=== PATIENT | male | born 1980 | race Caucasian/White ===

== ENCOUNTER 2019-10-21 21:59 | Emergency (ER) | payer MEDICARE, MEDICAID ==
[~2019-10-21] VITALS: Ht 147.3 cm; Wt 63.6 kg
[~2019-10-21 21:59] MED LIST: LORA1TAB PO; MAGN400O6 PO; METO25TA6 PO
--- NOTE | 2019-10-21 22:15 | NUR ---
APPARENTLY THERE WAS MISCOMMUNICATION WITH STAFF MEMBERS WHERE HE RESIDES AT, HE WAS NOT SUPPOSE TO BE TRANSFERRED UNLESS HIS BP WENT BELOW 110. BUT HE IS HERE AND DOING WELL.
--- NOTE | 2019-10-21 22:24 | NUR ---
Spoke with [facility] [employer] who is at bedside and she states that their facility's medical provider has been notified. Pt. was apparently suppose to remain in facility unless patient becomes hypotensive in response to meds given.
--- NOTE | 2019-10-21 22:33 | NUR ---
Per Dr. Patel, pt. VS to be monitored in the ED x 1-2 hour and pt. to be DC'd back to facility.
[2019-10-21 23:53] VITALS: BP 101/73
== END 2019-10-21 23:56 ==
LOC: ER 21:59
DX: T46.4X1A Poisoning by angiotensin-converting-enzyme inhibitors, accidental (unintentional), initial encounter (principal); T50.2X1A Poisoning by carbonic-anhydrase inhibitors, benzothiadiazides and other diuretics, accidental (unintentional), initial encounter; T43.591A Poisoning by other antipsychotics and neuroleptics, accidental (unintentional), initial encounter; I10 Essential (primary) hypertension; R62.50 Unspecified lack of expected normal physiological development in childhood; Z79.899 Other long term (current) drug therapy; Y92.89 Other specified places as the place of occurrence of the external cause
CPT/HCPCS: 99284

== ENCOUNTER 2023-04-12 11:47 | Emergency (ER) | payer MEDICARE, MEDICAID ==
[~2023-04-12] VITALS: Ht 162.6 cm; Wt 59.5 kg
[~2023-04-12 11:47] MED LIST changes: +LOP25T PO; -METO25TA6 PO
[2023-04-12 12:13] VITALS: BP 104/77
--- NOTE | 2023-04-12 14:54 | NUR ---
[employer] REPORT FILE. SEE PROVIDERS MSE NOTES.
== END 2023-04-12 15:17 | disposition home or self-care (01) ==
LOC: ER 11:47
DX: S30.21XA Contusion of penis, initial encounter (principal); I10 Essential (primary) hypertension; X58.XXXA Exposure to other specified factors, initial encounter; Y93.89 Activity, other specified; Y99.8 Other external cause status; Y92.89 Other specified places as the place of occurrence of the external cause
CPT/HCPCS: 99283

== ENCOUNTER 2023-04-19 21:59 | Emergency (ER) | payer MEDICARE, MEDICAID ==
[~2023-04-19] VITALS: Ht 162.6 cm; Wt 59.5 kg
[2023-04-19 22:15] VITALS: BP 127/77
== END 2023-04-20 01:17 | disposition home or self-care (01) ==
LOC: ER 22:01
DX: S30.21XA Contusion of penis, initial encounter (principal); I10 Essential (primary) hypertension; Z79.899 Other long term (current) drug therapy; X58.XXXA Exposure to other specified factors, initial encounter; Y93.89 Activity, other specified; Y92.89 Other specified places as the place of occurrence of the external cause; Y99.8 Other external cause status
CPT/HCPCS: 99281

== ENCOUNTER 2024-12-05 06:20 | Emergency (ER) | payer MEDICARE, MEDICAID ==
[~2024-12-05] VITALS: Ht 160 cm; Wt 60.5 kg
[2024-12-05 07:21] VITALS: BP 112/66; PULSE 78; RESP 20; TEMP 97.3; O2SAT 100
== END 2024-12-05 07:25 | disposition home or self-care (01) ==
LOC: ER 06:21
DX: K40.90 Unilateral inguinal hernia, without obstruction or gangrene, not specified as recurrent (principal); I10 Essential (primary) hypertension
CPT/HCPCS: 99281